=== PATIENT | female | born 1980 | race Caucasian/White ===

== ENCOUNTER 2016-10-22 10:50 | Emergency (ER) | payer OTHER ==
--- NOTE | 2016-10-22 12:52 | ED CLINICAL REPORT ---
Clinical Report - Physicians/Mid Levels [facility] [address] [place] [address] 10/22/2016 10:54 Patient: JEFF AG Time Seen: 11:57. Arrived- By private vehicle. Historian- patient. HISTORY OF PRESENT ILLNESS Chief Complaint: VAGINAL LESIONS. This started about 1 week ago and still present. The symptoms are described as severe. Modifying factors- worsened by movement and urination. Not relieved by anything. The patient has had vaginal pain and genital lesions. No abdominal pain, pelvic pain, low back pain, flank pain or abnormal bleeding. No vaginal discharge, urinary frequency or urgency of urination. The patient has had pain with urination. Not sexually active. (PT states she has a distant (years) history of exposure to genital herpes, but has never had sx herself. She states her DM is under good control. Pt states sx started after she nicked herself while shaving her pubic hair.). Similar symptoms previously: None. Recent medical care: Not recently seen/assessed. REVIEW OF SYSTEMS No nausea, vomiting, diarrhea, black stools or headache. No fever, chills, anorexia, eye discomfort or sore throat. No cough, difficulty breathing, chest pain, skin rash or enlarged lymph nodes. No joint pain. All systems otherwise negative, except as recorded above. PAST HISTORY Problems: Diabetes Mellitus. Additional Surgeries: Carpal Tunnel Surgery. Tonsillectomy. Medications: Ibuprofen Oral. Benadryl Allergy Oral. LORazepam Oral. Lexapro Oral. Lisinopril Oral. MetFORMIN HCl ER Oral. Allergies: No Known Drug Allergy. SOCIAL HISTORY Never smoker. Occasional alcohol use. History of drug use: marijuana. ADDITIONAL NOTES The nursing notes have been reviewed. PHYSICAL EXAM Vital Signs: 10/22/2016 11:26 BP: 140/80. HR: 79. RR: 18. O2 saturation: 98%. Temp: 98.7 F. Have been reviewed. Appearance: Alert. Oriented X3. No acute distress. (Pt appears somewhat uncomfortable.). HEENT: Normal external inspection. Neck: Neck supple. Respiratory: No respiratory distress. Abdomen: Soft and nontender. Back: Normal external inspection. No CVA tenderness. : Many severely tender herpes-like lesions (ulcerations, with an erythematous base) present on the perineum and right and left labia majora and minora, at the introitus and in the periurethral area (unable to examine vagina, secondary to degree of tenderness of external genitalia.). Skin: Skin warm and dry. Normal skin color. No rash. Normal skin turgor. Extremities: No lower extremity edema. Neuro: Oriented X 3. Mood/affect normal. No motor deficit. No sensory deficit. LABS, X-RAYS, AND EKG Laboratory Tests: UA-Culture if indicated: (CARLOS: 10/22/2016 11:10) ( MsgRcvd 10/22/2016 12:37) Final results Test Result Flag Units (Reference) URINE COLOR YELLOW URINE APPEARANCE SL CLOUDY URINE GLUCOSE 3+ (NEGATIVE) URINE BILIRUBIN NEGATIVE (NEGATIVE) URINE BILIRUBIN ICTOTEST NEGATIVE (NEGATIVE) URINE SPECIFIC GRAVITY 1.015 (1.010-1.030) URINE PH 6.0 (5.0-8.0) URINE PROTEIN NEGATIVE (NEGATIVE) URINE UROBILINOGEN 0.2 EU/dL (0.2-1.0) URINE NITRITE NEGATIVE (NEGATIVE) URINE BLOOD 2+ (NEGATIVE) URINE LEUK ESTERASE TRACE (NEGATIVE) URINE RBC 5-10 rbc/hpf (0-1) URINE WBC 50-75 wbc/hpf (0-1) URINE EPITHELIAL CELLS 10-15 EPI/hpf (0-5) URINE BACTERIA MODERATE (2+ TO 3+) (NONE SEEN) URINE COMMENT CULTURE INDICATED URINE CULTURES ARE SET-UP BASED ON THE FOLLOWING CRITERIA:POSITIVE NITRITEPOSITIVE LEUKOCYTE ESTERASEGREATER THAN 10 WHITE BLOOD CELLSMODERATE (2+) OR GREATER BACTERIA Culture, Herpes: (CARLOS: 10/22/2016 11:50) ( MsgRcvd 10/24/2016 14:09) Final results SPECIMEN DESCRIPTION: LABIA Test Result Flag Units (Reference) HSV CULTURE AND TYPING Positive for Herpes simplex virus type-1. Typing was confirmed by monoclonal antibody microscopic immunofluorescence. Performed at: [address], [place] [id number] Java Technical Manager: Humberto Higuera MD, Phone: [phone] Culture, Urine: (CARLOS: 10/22/2016 11:10) ( MsgRcvd 10/24/2016 12:00) Final results Test Result Flag Units (Reference) CULTURE, URINE DATE: 10/24/16 NO SIGNIFICANT ISOLATION: NO SIGNIFICANT ISOLATION PRELIM REPORT: FINAL REPORT . Pulse Oximetry: 10/22/2016 11:26 O2 saturation: 98%. (FIO2 - room air). Interpretation: normal. PROGRESS AND PROCEDURES Course of Care: Lesions did appear consistent with a herpes outbreak. No evidence of a bacterial infection present. PT was treated with acyclovir for presumed herpetic outbreak. Viral culture was performed for diagnostic certainty, and was pending upon pt's discharge. Patient counseled in person regarding the patient's stable condition, test results, diagnosis and need for follow-up. Concerns were addressed. Old medical records reviewed. Disposition: Discharged. Condition: stable. CLINICAL IMPRESSION Acute severe herpes vulvovaginitis. 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 INSTRUCTIONS Do not work for three days. Drink plenty of fluids. Warnings: SEDATIVE MEDICATION: You were given sedative medication during your visit. Do not drive or operate dangerous machinery for 6 hours. GENERAL WARNINGS: Return or contact your physician immediately if your condition worsens or changes unexpectedly, if not improving as expected, or if other problems arise. Your Current Medications: CONTINUE TAKING THE FOLLOWING MEDICATIONS: Benadryl Allergy Oral. Ibuprofen Oral. Lexapro Oral. Lisinopril Oral. LORazepam Oral. MetFORMIN HCl ER Oral. Prescription Medications: Acyclovir 200 mg: five times a day for 10 days. No refill. Diflucan 150 mg tablets: initially take 1 tablet orally , then take 1 tablet orally every day for 2 days. No refill. Substitution is permissible. Percocet 5 mg/325 mg: take 1-2 tablets orally every 6 hours as needed for pain. Dispense twenty (20). No refill. Substitution is permissible. Understanding of the discharge instructions verbalized by patient. Follow-up with: Hernán Burris MD, Obstetrics/Gynecology, , [facility], [address] [place] [address] Follow up. Call for the next available appointment. Reason for referral: Follow up ER visit. (Electronically signed by Eva Velasquez MD 10/31/2016 21:18)
--- NOTE | 2016-10-22 12:52 | ED NURSING NOTES ---
Clinical Report - Nurses Merged With [facility] [address] [place] [address] 10/22/2016 10:54 [id number] Triage time 11:Oct 22 2016. Acuity: LEVEL 3. Chief Complaint: (vaginal pain on left side). NAVDEEP COMA SCORE: [place] Coma Scale: 15- eyes open spontaneously (4); best verbal response- oriented x 4 (5); best motor response- obeys commands (6). --11:30 Anni Marks R.N. 11:26 10/22/16. BP: 140/80. HR: 79. RR: 18. O2 saturation: 98%. Temp: 98.7 F. Pain level now 04/30. --11:30 Anni Marks R.N. Weight: 102 kg stated. Height/Length: 67 inches Per Patient. BMI: 35.3. --11:28 Anni Marks R.N. Medications MetFORMIN HCl ER Oral. --11:27 Anni Marks R.N. Lisinopril Oral. --11:27 Anni Marks R.N. Lexapro Oral. --11:27 Anni Marks R.N. LORazepam Oral. --11:27 Anni Marks R.N. Benadryl Allergy Oral. --11:27 Anni Marks R.N. Ibuprofen Oral. --11:27 Anni Marks R.N. Allergies No Known Drug Allergy. --11:27 Anni Marks R.N. History Arrived by private vehicle. Historian: patient. Accompanied by friend. Onset. (one week). ( Was shaving and cut left side of labia then patient got these sores and rash.). No abdominal pain, spotting, hematuria, abnormal bleeding or flank pain. No fever. PAST MEDICAL HX: Diabetes mellitus. Immunizations: up-to-date. Last normal menstrual period- September 28. SOCIAL HX: Never smoker. Occasional alcohol use. History of drug use: marijuana. No infectious disease exposure. FALL RISK ASSESSMENT: Fall risk assessment completed. No fall risk identified. NUTRITIONAL RISK ASSESSMENT: The nutritional risk assessment revealed no deficiencies. FUNCTIONAL ASSESSMENT: Functional assessment: no impairments noted. LEARNING NEEDS ASSESSMENT: The learning needs assessment revealed no barriers. SKIN INTEGRITY ASSESSMENT: Skin integrity risk assessment completed. No skin integrity risk identified. --11:30 Anni Marks R.N. PROBLEMS: Diabetes Mellitus. --11:28 Anni Marks R.N. ADDITIONAL SURGERIES: Carpal Tunnel Surgery. Tonsillectomy. --11:28 Anni Marks R.N. Interventions ID band on patient. --11:30 Anni Marks R.N. PHYSICAL ASSESSMENT Ambulatory to room. GENERAL / NEURO / PSYCH: Alert. Oriented X 4. Appears in pain. RESPIRATORY: Respirations not labored. Breath sounds within normal limits. CVS: Normal heart rate and rhythm. Capillary refill less than 2 seconds. GI / : Abdomen soft and nontender. Bowel sounds within normal limits. --11:32 Anni Marks R.N. NURSING PROGRESS NOTES 13:14 10/22/2016 Acyclovir PO Capsules 200 mg given. Allergies verified and confirmed 5 rights. --13:14 Preston Galvan R.N. 13:14 10/22/2016 Oxycodone-APAP (Oxycodone-Acetaminophen) PO 5/325 mg Tablets 2 tab given. Allergies verified, confirmed 5 rights and sedative warning given to the patient. --13:14 Preston Galvan R.N. DISPOSITION / DISCHARGE 13:22 10/22/16. BP: 135/74. HR: 80. RR: 16. O2 saturation: 99% on room air. Temp: 97.8 F. Pain level now: 03/31. --13:22 Preston Galvan R.N. Condition at departure: improved and stable. The goals identified in the patient's plan of care were met. No learning barriers present. Discharge instructions provided and reviewed with the patient and spouse. Reviewed warnings (Pt instructed not to drive today and while taking Percocet Rx.). Reviewed medication(s) side effects, precautions, dosing and course information. Prescription(s) given to the patient. Reviewed referral to a primary care physician for followup. Work note given (Do not work for 3 days.). Patient and spouse verbalized understanding. Written instructions provided in Mont[place]. The patient was discharged by the physician. She was discharged home and accompanied by spouse. She left the Emergency Department ambulatory and via private vehicle. Spouse driving. --13:24 Preston Galvan R.N. ( Pt's VSS, ambulatory, verbalized understanding of DC paperwork and teaching regarding Rx. S/O at bedside. Pt stated she will not drive home today d/t Percocet administration.). --13:24 Preston Galvan R.N. Departure time: 13:26 Oct 22 2016. --13:27 Preston Galvan R.N. Locked/Released at 10/22/2016 15:27 by Anni Marks R.N.
--- NOTE | 2016-10-22 12:52 | ED ORDER SUMMARY ---
..... Patient: JEFF AG OrderSheet [facility] VisitID: [id number] [place] [address] 36y, F Registration Date/Time: 10/22/2016 ORDER SHEET Weight: 102.0 kg (stated) Allergies: No Known Drug Allergy GENERAL ORDERS: UA-Culture if indicated Urgent (11:58 10/22/2016 LWdewey R.N. verbal order read back to Cielo MONTEZ) (Ack 11:59 KHoerner) (12:03 KHoerner) Culture, Herpes (Miscellaneous) (labia ) Urgent (11:59 10/22/2016 LWdewey R.N. verbal order read back to Cielo MONTEZ) (Ack 12:01 KHoerner) (12:03 KHoerner) MEDICATION ORDERS: Acyclovir PO 800 mg (NOW) (12:42 10/22/2016 Cielo MONTEZ) (13:14 MCook R.N.) Oxycodone-APAP PO 10/650 mg (HIGH ALERT MEDICATION, NOW) (12:42 10/22/2016 Cielo MONTEZ) (13:14 MCchang R.N.) IV FLUIDS: ORDER SHEET NOTES: [Electronically signed by Anni Marks R.N. (15:27 10/22/2016)] [Electronically signed by Eva Velasquez MD (21:18 10/31/2016)] [Electronically locked/signed by Anni Marks R.N. (15:27 10/22/2016)]
--- NOTE | 2016-10-22 12:52 | ED CLINICAL REPORT ---
Clinical Report - Physicians/Mid Levels [facility] [address] [place] [address] 10/22/2016 10:54 Patient: JEFF AG Time Seen: 11:57. Arrived- By private vehicle. Historian- patient. HISTORY OF PRESENT ILLNESS Chief Complaint: VAGINAL LESIONS. This started about 1 week ago and still present. The symptoms are described as severe. Modifying factors- worsened by movement and urination. Not relieved by anything. The patient has had vaginal pain and genital lesions. No abdominal pain, pelvic pain, low back pain, flank pain or abnormal bleeding. No vaginal discharge, urinary frequency or urgency of urination. The patient has had pain with urination. Not sexually active. (PT states she has a distant (years) history of exposure to genital herpes, but has never had sx herself. She states her DM is under good control. Pt states sx started after she nicked herself while shaving her pubic hair.). Similar symptoms previously: None. Recent medical care: Not recently seen/assessed. REVIEW OF SYSTEMS No nausea, vomiting, diarrhea, black stools or headache. No fever, chills, anorexia, eye discomfort or sore throat. No cough, difficulty breathing, chest pain, skin rash or enlarged lymph nodes. No joint pain. All systems otherwise negative, except as recorded above. PAST HISTORY Problems: Diabetes Mellitus. Additional Surgeries: Carpal Tunnel Surgery. Tonsillectomy. Medications: Ibuprofen Oral. Benadryl Allergy Oral. LORazepam Oral. Lexapro Oral. Lisinopril Oral. MetFORMIN HCl ER Oral. Allergies: No Known Drug Allergy. SOCIAL HISTORY Never smoker. Occasional alcohol use. History of drug use: marijuana. ADDITIONAL NOTES The nursing notes have been reviewed. PHYSICAL EXAM Vital Signs: 10/22/2016 11:26 BP: 140/80. HR: 79. RR: 18. O2 saturation: 98%. Temp: 98.7 F. Have been reviewed. Appearance: Alert. Oriented X3. No acute distress. (Pt appears somewhat uncomfortable.). HEENT: Normal external inspection. Neck: Neck supple. Respiratory: No respiratory distress. Abdomen: Soft and nontender. Back: Normal external inspection. No CVA tenderness. : Many severely tender herpes-like lesions (ulcerations, with an erythematous base) present on the perineum and right and left labia majora and minora, at the introitus and in the periurethral area (unable to examine vagina, secondary to degree of tenderness of external genitalia.). Skin: Skin warm and dry. Normal skin color. No rash. Normal skin turgor. Extremities: No lower extremity edema. Neuro: Oriented X 3. Mood/affect normal. No motor deficit. No sensory deficit. LABS, X-RAYS, AND EKG Laboratory Tests: UA-Culture if indicated: (CARLOS: 10/22/2016 11:10) ( MsgRcvd 10/22/2016 12:37) Final results Test Result Flag Units (Reference) URINE COLOR YELLOW URINE APPEARANCE SL CLOUDY URINE GLUCOSE 3+ (NEGATIVE) URINE BILIRUBIN NEGATIVE (NEGATIVE) URINE BILIRUBIN ICTOTEST NEGATIVE (NEGATIVE) URINE SPECIFIC GRAVITY 1.015 (1.010-1.030) URINE PH 6.0 (5.0-8.0) URINE PROTEIN NEGATIVE (NEGATIVE) URINE UROBILINOGEN 0.2 EU/dL (0.2-1.0) URINE NITRITE NEGATIVE (NEGATIVE) URINE BLOOD 2+ (NEGATIVE) URINE LEUK ESTERASE TRACE (NEGATIVE) URINE RBC 5-10 rbc/hpf (0-1) URINE WBC 50-75 wbc/hpf (0-1) URINE EPITHELIAL CELLS 10-15 EPI/hpf (0-5) URINE BACTERIA MODERATE (2+ TO 3+) (NONE SEEN) URINE COMMENT CULTURE INDICATED URINE CULTURES ARE SET-UP BASED ON THE FOLLOWING CRITERIA:POSITIVE NITRITEPOSITIVE LEUKOCYTE ESTERASEGREATER THAN 10 WHITE BLOOD CELLSMODERATE (2+) OR GREATER BACTERIA Culture, Herpes: (CARLOS: 10/22/2016 11:50) ( MsgRcvd 10/24/2016 14:09) Final results SPECIMEN DESCRIPTION: LABIA Test Result Flag Units (Reference) HSV CULTURE AND TYPING Positive for Herpes simplex virus type-1. Typing was confirmed by monoclonal antibody microscopic immunofluorescence. Performed at: [address], [place] [id number] Dinkey Skinner: Humberto Higuera MD, Phone: [phone] Culture, Urine: (CARLOS: 10/22/2016 11:10) ( MsgRcvd 10/24/2016 12:00) Final results Test Result Flag Units (Reference) CULTURE, URINE DATE: 10/24/16 NO SIGNIFICANT ISOLATION: NO SIGNIFICANT ISOLATION PRELIM REPORT: FINAL REPORT . Pulse Oximetry: 10/22/2016 11:26 O2 saturation: 98%. (FIO2 - room air). Interpretation: normal. PROGRESS AND PROCEDURES Course of Care: Lesions did appear consistent with a herpes outbreak. No evidence of a bacterial infection present. PT was treated with acyclovir for presumed herpetic outbreak. Viral culture was performed for diagnostic certainty, and was pending upon pt's discharge. Patient counseled in person regarding the patient's stable condition, test results, diagnosis and need for follow-up. Concerns were addressed. Old medical records reviewed. Disposition: Discharged. Condition: stable. CLINICAL IMPRESSION Acute severe herpes vulvovaginitis. 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 INSTRUCTIONS Do not work for three days. Drink plenty of fluids. Warnings: SEDATIVE MEDICATION: You were given sedative medication during your visit. Do not drive or operate dangerous machinery for 6 hours. GENERAL WARNINGS: Return or contact your physician immediately if your condition worsens or changes unexpectedly, if not improving as expected, or if other problems arise. Your Current Medications: CONTINUE TAKING THE FOLLOWING MEDICATIONS: Benadryl Allergy Oral. Ibuprofen Oral. Lexapro Oral. Lisinopril Oral. LORazepam Oral. MetFORMIN HCl ER Oral. Prescription Medications: Acyclovir 200 mg: five times a day for 10 days. No refill. Diflucan 150 mg tablets: initially take 1 tablet orally , then take 1 tablet orally every day for 2 days. No refill. Substitution is permissible. Percocet 5 mg/325 mg: take 1-2 tablets orally every 6 hours as needed for pain. Dispense twenty (20). No refill. Substitution is permissible. Understanding of the discharge instructions verbalized by patient. Follow-up with: Hernán Burris MD, Obstetrics/Gynecology, , [facility], [address] [place] [address] Follow up. Call for the next available appointment. Reason for referral: Follow up ER visit. (Electronically signed by Eva Velasquez MD 10/31/2016 21:18)
--- NOTE | 2016-10-22 12:52 | ED ORDER SUMMARY ---
..... Patient: JEFF AG OrderSheet VisitID: [id number] [place] [address] 36y, F Registration Date/Time: 10/22/2016 ORDER SHEET Weight: 102.0 kg (stated) Allergies: No Known Drug Allergy GENERAL ORDERS: UA-Culture if indicated Urgent (11:58 10/22/2016 LWdewey R.N. verbal order read back to Cielo MONTEZ) (Ack 11:59 KHoerner) (12:03 KHoerner) Culture, Herpes (Miscellaneous) (labia ) Urgent (11:59 10/22/2016 LWdewey R.N. verbal order read back to Cielo MONTEZ) (Ack 12:01 KHoerner) (12:03 KHoerner) MEDICATION ORDERS: Acyclovir PO 800 mg (NOW) (12:42 10/22/2016 Cielo MONTEZ) (13:14 MCook R.N.) Oxycodone-APAP PO 10/650 mg (HIGH ALERT MEDICATION, NOW) (12:42 10/22/2016 Cielo MONTEZ) (13:14 MCchang R.N.) IV FLUIDS: ORDER SHEET NOTES: [Electronically signed by Anni Marks R.N. (15:27 10/22/2016)] [Electronically signed by Eva Velasquez MD (21:18 10/31/2016)] [Electronically locked/signed by Anni Marks R.N. (15:27 10/22/2016)]
--- NOTE | 2016-10-22 12:52 | ED NURSING NOTES ---
Clinical Report - Nurses [facility] [address] [place] [address] 10/22/2016 10:54 [id number] Triage time 11:Oct 22 2016. Acuity: LEVEL 3. Chief Complaint: (vaginal pain on left side). NAVDEEP COMA SCORE: [place] Coma Scale: 15- eyes open spontaneously (4); best verbal response- oriented x 4 (5); best motor response- obeys commands (6). --11:30 Anni Marks R.N. 11:26 10/22/16. BP: 140/80. HR: 79. RR: 18. O2 saturation: 98%. Temp: 98.7 F. Pain level now 04/30. --11:30 Anni Marks R.N. Weight: 102 kg stated. Height/Length: 67 inches Per Patient. BMI: 35.3. --11:28 Anni Marks R.N. Medications MetFORMIN HCl ER Oral. --11:27 Anni Marks R.N. Lisinopril Oral. --11:27 Anni Marks R.N. Lexapro Oral. --11:27 Anni Marks R.N. LORazepam Oral. --11:27 Anni Marks R.N. Benadryl Allergy Oral. --11:27 Anni Marks R.N. Ibuprofen Oral. --11:27 Anni Marks R.N. Allergies No Known Drug Allergy. --11:27 Anni Marks R.N. History Arrived by private vehicle. Historian: patient. Accompanied by friend. Onset. (one week). ( Was shaving and cut left side of labia then patient got these sores and rash.). No abdominal pain, spotting, hematuria, abnormal bleeding or flank pain. No fever. PAST MEDICAL HX: Diabetes mellitus. Immunizations: up-to-date. Last normal menstrual period- September 28. SOCIAL HX: Never smoker. Occasional alcohol use. History of drug use: marijuana. No infectious disease exposure. FALL RISK ASSESSMENT: Fall risk assessment completed. No fall risk identified. NUTRITIONAL RISK ASSESSMENT: The nutritional risk assessment revealed no deficiencies. FUNCTIONAL ASSESSMENT: Functional assessment: no impairments noted. LEARNING NEEDS ASSESSMENT: The learning needs assessment revealed no barriers. SKIN INTEGRITY ASSESSMENT: Skin integrity risk assessment completed. No skin integrity risk identified. --11:30 Anni Marks R.N. PROBLEMS: Diabetes Mellitus. --11:28 Anni Marks R.N. ADDITIONAL SURGERIES: Carpal Tunnel Surgery. Tonsillectomy. --11:28 Anni Marks R.N. Interventions ID band on patient. --11:30 Anni Marks R.N. PHYSICAL ASSESSMENT Ambulatory to room. GENERAL / NEURO / PSYCH: Alert. Oriented X 4. Appears in pain. RESPIRATORY: Respirations not labored. Breath sounds within normal limits. CVS: Normal heart rate and rhythm. Capillary refill less than 2 seconds. GI / : Abdomen soft and nontender. Bowel sounds within normal limits. --11:32 Anni Marks R.N. NURSING PROGRESS NOTES 13:14 10/22/2016 Acyclovir PO Capsules 200 mg given. Allergies verified and confirmed 5 rights. --13:14 Preston Galvan R.N. 13:14 10/22/2016 Oxycodone-APAP (Oxycodone-Acetaminophen) PO 5/325 mg Tablets 2 tab given. Allergies verified, confirmed 5 rights and sedative warning given to the patient. --13:14 Preston Galvan R.N. DISPOSITION / DISCHARGE 13:22 10/22/16. BP: 135/74. HR: 80. RR: 16. O2 saturation: 99% on room air. Temp: 97.8 F. Pain level now: 03/31. --13:22 Preston Galvan R.N. Condition at departure: improved and stable. The goals identified in the patient's plan of care were met. No learning barriers present. Discharge instructions provided and reviewed with the patient and spouse. Reviewed warnings (Pt instructed not to drive today and while taking Percocet Rx.). Reviewed medication(s) side effects, precautions, dosing and course information. Prescription(s) given to the patient. Reviewed referral to a primary care physician for followup. Work note given (Do not work for 3 days.). Patient and spouse verbalized understanding. Written instructions provided in [place]. The patient was discharged by the physician. She was discharged home and accompanied by spouse. She left the Emergency Department ambulatory and via private vehicle. Spouse driving. --13:24 Preston Galvan R.N. ( Pt's VSS, ambulatory, verbalized understanding of DC paperwork and teaching regarding Rx. S/O at bedside. Pt stated she will not drive home today d/t Percocet administration.). --13:24 Preston Galvan R.N. Departure time: 13:26 Oct 22 2016. --13:27 Preston Galvan R.N. Locked/Released at 10/22/2016 15:27 by Anni Marks R.N.
--- NOTE | 2016-10-31 21:18 | ED MED RECONCILIATION SUMMARY ---
Patient: JEFF AG Medication Reconciliation Report [facility] VisitID: [id number] [address] [place] [address] 36y, F Registration Date/Time: 10/22/2016 Weight: 102.0 kg Height/Length: 67 in. BMI: 35.3 ALLERGIES: No Known Drug Allergy The patient's Home Medications are listed below: CONTINUE TAKING THE FOLLOWING MEDICATIONS: Benadryl Allergy Oral Ibuprofen Oral Lexapro Oral Lisinopril Oral LORazepam Oral MetFORMIN HCl ER Oral The source(s) of the original Home Medication information: Not obtained. The following Medications were given to the patient in the Emergency Department: Acyclovir [PO] PO 200 mg, administered: 10/22/2016 1:14:00 PM Oxycodone-APAP [PO] PO 2 tab, administered: 10/22/2016 1:14:00 PM The following Medications were prescribed to the patient: Acyclovir 200 mg: five times a day for 10 days. No refill. -- Eva Velasquez MD Diflucan 150 mg tablets: initially take 1 tablet orally , then take 1 tablet orally every day for 2 days. No refill. Substitution is permissible. -- Eva Velasquez MD Percocet 5 mg/325 mg: take 1-2 tablets orally every 6 hours as needed for pain. Dispense twenty (20). No refill. Substitution is permissible. -- Eva Velasquez MD
--- NOTE | 2016-10-31 21:18 | ED DISCHARGE INSTRUCTIONS ---
Patient: JEFF AG General Instructions [facility] VisitID: [id number] [place] [address] 36y, F Registration Date/Time: 10/22/2016 Acute severe herpes vulvovaginitis. 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 INSTRUCTIONS Do not work for three days. Drink plenty of fluids. Warnings: SEDATIVE MEDICATION: You were given sedative medication during your visit. Do not drive or operate dangerous machinery for 6 hours. GENERAL WARNINGS: Return or contact your physician immediately if your condition worsens or changes unexpectedly, if not improving as expected, or if other problems arise. Your Current Medications: CONTINUE TAKING THE FOLLOWING MEDICATIONS: Benadryl Allergy Oral. Ibuprofen Oral. Lexapro Oral. Lisinopril Oral. LORazepam Oral. MetFORMIN HCl ER Oral. Prescription Medications: Acyclovir 200 mg: five times a day for 10 days. No refill. Diflucan 150 mg tablets: initially take 1 tablet orally , then take 1 tablet orally every day for 2 days. No refill. Substitution is permissible. Percocet 5 mg/325 mg: take 1-2 tablets orally every 6 hours as needed for pain. Dispense twenty (20). No refill. Substitution is permissible. Understanding of the discharge instructions verbalized by patient. Follow-up with: Hernán Burris MD, Obstetrics/Gynecology, , [facility], [address] [place] [address] Follow up. Call for the next available appointment. Reason for referral: Follow up ER visit. ADDITIONAL INFORMATION Genital Herpes Genital herpes is a common sexually transmitted disease (STD). It is caused by the Herpes Simplex virus. One out of five (20%) teens and adults carry the herpes virus. During an outbreak, it causes small blisters that break open, leaving small painful ulcers (sores) in the genital area. Eventually, scabs form and the ulcers heal. In women, these are most often on the skin just outside the vaginal opening. They can occur on the buttocks, anus or cervix. In men, the sores are usually on the tip, sides or base of the penis. They also occur on the scrotum, buttocks or thighs. The first episode begins within 2-3 weeks after exposure to an infected sexual partner. It may last 1-3 weeks and cause headache, muscle ache and fevers. The first outbreak is usually the worst. Because the virus remains in the body even after the sores heal, most persons will have recurrences. The frequency of recurrent outbreaks varies with each person. Some people will never have another outbreak. Others will have several episodes a year. Later outbreaks are usually shorter, milder and less painful. For many, the number of outbreaks tends to decrease over time. Various factors may trigger a recurrence. These include: Emotional stress Menstruation Presence of another illness (cold, flu, or fever from any cause) Overexertion and fatigue Weakened immune system Home Care: It is very important that you do not have sexual relations until ALL the herpes sores have healed completely. Wash the affected area gently with mild soap and water. Wash your hands after touching the affected area. You may use acetaminophen (Tylenol) or ibuprofen (Motrin, Advil) to control pain, unless another pain medicine was prescribed. [NOTE: If you have chronic liver or kidney disease or ever had a stomach ulcer or GI bleeding, talk with your doctor before using these medicines.] Your doctor may prescribe anti-viral medicine during the first outbreak. This will help the sores heal faster. Antiviral medicine may also be prescribed to have at home to take at the first sign of a recurrence. This will shorten the symptoms of a recurrence. For persons with frequent outbreaks, daily therapy may be prescribed. This will reduce the frequency of attacks. Daily therapy may also reduce risk of spread of herpes to your sexual partner. Discuss the risks and benefits of daily therapy with your doctor. If you are a woman who is now or become in the future, let your doctor know that you have had herpes since this may affect the method of delivery. Preventing Spread To Others: The virus is spread by sexual contact with someone who has the herpes virus. The risk of spread is highest when the sores are present. However, there is a chance of spreading the virus even when sores are not visible . Inform future sexual partners that you have herpes and that he/she may become infected. To reduce the risk of passing the virus to a partner who has never had herpes, avoid sexual relations at the first sign of an outbreak and until the ulcers are fully healed. Latex condoms reduce the risk of spread between outbreaks if the infected site is covered, but they do not guarantee protection. Follow-Up: Persons who have just learned that they have herpes may feel guilt, anger, and be emotionally upset. Getting the facts helps put you back in control. Follow up with your doctor or the Public Health Dept for complete STD screening, including HIV testing. For more information about Herpes, see the "National Herpes Resource Center" http://www.ashastd.org/herpes/herpes_overview.cfm ; or call the National STD Hotline: 805.692.7748. Get Prompt Medical Attention if any of the following occur: Inability to urinate due to pain Swelling or increasing redness in the genital area Unusual drowsiness, weakness or confusion Headache, stiff neck Discharge from the vagina or penis Increasing back or abdominal pain Rash or joint pain You have been given the following additional information: Herpes Genitalis, Hsv: Type Ii Do not work for three days. (Electronically signed by Eva Velasquez MD 10/31/2016 21:18)
--- NOTE | 2016-10-31 21:18 | ED DISCHARGE INSTRUCTIONS ---
Patient: JEFF AG General Instructions [facility] VisitID: [id number] [place] [address] 36y, F Registration Date/Time: 10/22/2016 Acute severe herpes vulvovaginitis. 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 INSTRUCTIONS Do not work for three days. Drink plenty of fluids. Warnings: SEDATIVE MEDICATION: You were given sedative medication during your visit. Do not drive or operate dangerous machinery for 6 hours. GENERAL WARNINGS: Return or contact your physician immediately if your condition worsens or changes unexpectedly, if not improving as expected, or if other problems arise. Your Current Medications: CONTINUE TAKING THE FOLLOWING MEDICATIONS: Benadryl Allergy Oral. Ibuprofen Oral. Lexapro Oral. Lisinopril Oral. LORazepam Oral. MetFORMIN HCl ER Oral. Prescription Medications: Acyclovir 200 mg: five times a day for 10 days. No refill. Diflucan 150 mg tablets: initially take 1 tablet orally , then take 1 tablet orally every day for 2 days. No refill. Substitution is permissible. Percocet 5 mg/325 mg: take 1-2 tablets orally every 6 hours as needed for pain. Dispense twenty (20). No refill. Substitution is permissible. Understanding of the discharge instructions verbalized by patient. Follow-up with: Hernán Burris MD, Obstetrics/Gynecology, , [facility], [address] [place] [address] Follow up. Call for the next available appointment. Reason for referral: Follow up ER visit. ADDITIONAL INFORMATION Genital Herpes Genital herpes is a common sexually transmitted disease (STD). It is caused by the Herpes Simplex virus. One out of five (20%) teens and adults carry the herpes virus. During an outbreak, it causes small blisters that break open, leaving small painful ulcers (sores) in the genital area. Eventually, scabs form and the ulcers heal. In women, these are most often on the skin just outside the vaginal opening. They can occur on the buttocks, anus or cervix. In men, the sores are usually on the tip, sides or base of the penis. They also occur on the scrotum, buttocks or thighs. The first episode begins within 2-3 weeks after exposure to an infected sexual partner. It may last 1-3 weeks and cause headache, muscle ache and fevers. The first outbreak is usually the worst. Because the virus remains in the body even after the sores heal, most persons will have recurrences. The frequency of recurrent outbreaks varies with each person. Some people will never have another outbreak. Others will have several episodes a year. Later outbreaks are usually shorter, milder and less painful. For many, the number of outbreaks tends to decrease over time. Various factors may trigger a recurrence. These include: Emotional stress Menstruation Presence of another illness (cold, flu, or fever from any cause) Overexertion and fatigue Weakened immune system Home Care: It is very important that you do not have sexual relations until ALL the herpes sores have healed completely. Wash the affected area gently with mild soap and water. Wash your hands after touching the affected area. You may use acetaminophen (Tylenol) or ibuprofen (Motrin, Advil) to control pain, unless another pain medicine was prescribed. [NOTE: If you have chronic liver or kidney disease or ever had a stomach ulcer or GI bleeding, talk with your doctor before using these medicines.] Your doctor may prescribe anti-viral medicine during the first outbreak. This will help the sores heal faster. Antiviral medicine may also be prescribed to have at home to take at the first sign of a recurrence. This will shorten the symptoms of a recurrence. For persons with frequent outbreaks, daily therapy may be prescribed. This will reduce the frequency of attacks. Daily therapy may also reduce risk of spread of herpes to your sexual partner. Discuss the risks and benefits of daily therapy with your doctor. If you are a woman who is now or become in the future, let your doctor know that you have had herpes since this may affect the method of delivery. Preventing Spread To Others: The virus is spread by sexual contact with someone who has the herpes virus. The risk of spread is highest when the sores are present. However, there is a chance of spreading the virus even when sores are not visible . Inform future sexual partners that you have herpes and that he/she may become infected. To reduce the risk of passing the virus to a partner who has never had herpes, avoid sexual relations at the first sign of an outbreak and until the ulcers are fully healed. Latex condoms reduce the risk of spread between outbreaks if the infected site is covered, but they do not guarantee protection. Follow-Up: Persons who have just learned that they have herpes may feel guilt, anger, and be emotionally upset. Getting the facts helps put you back in control. Follow up with your doctor or the Public Health Dept for complete STD screening, including HIV testing. For more information about Herpes, see the "National Herpes Resource Center" http://www.ashastd.org/herpes/herpes_overview.cfm ; or call the National STD Hotline: 780.705.7478. Get Prompt Medical Attention if any of the following occur: Inability to urinate due to pain Swelling or increasing redness in the genital area Unusual drowsiness, weakness or confusion Headache, stiff neck Discharge from the vagina or penis Increasing back or abdominal pain Rash or joint pain You have been given the following additional information: Herpes Genitalis, Hsv: Type Ii Do not work for three days. (Electronically signed by Eva Velasquez MD 10/31/2016 21:18)
--- NOTE | 2016-10-31 21:18 | ED MAR SUMMARY ---
..... Medication Administration Record [facility] [address] [place] [address] Patient: JEFF AG Visit ID: [id number] 36y, F Weight: 102.0 kg Height/Length: 67 in BMI: 35.3 ALLERGIES: No Known Drug Allergy Given :10/22/2016 Preston Galvan R.N. Medication Administered: ACYCLOVIR [PO], Dose: 200 mg Capsules PO. Medication Ordered: Acyclovir PO 800 mg (NOW). Given 13:10/22/2016 Presotn Galvan R.N. Medication Administered: OXYCODONE-APAP [PO] (OXYCODONE-ACETAMINOPHEN), Dose: 2 tab 5/325 mg Tablets PO. Medication Ordered: Oxycodone-APAP PO 10/650 mg (HIGH ALERT MEDICATION, NOW).
--- NOTE | 2016-10-31 21:18 | ED MED RECONCILIATION SUMMARY ---
Patient: JEFF AG Medication Reconciliation Report [facility] VisitID: [id number] [address] [place] [address] 36y, F Registration Date/Time: 10/22/2016 Weight: 102.0 kg Height/Length: 67 in. BMI: 35.3 ALLERGIES: No Known Drug Allergy The patient's Home Medications are listed below: CONTINUE TAKING THE FOLLOWING MEDICATIONS: Benadryl Allergy Oral Ibuprofen Oral Lexapro Oral Lisinopril Oral LORazepam Oral MetFORMIN HCl ER Oral The source(s) of the original Home Medication information: Not obtained. The following Medications were given to the patient in the Emergency Department: Acyclovir [PO] PO 200 mg, administered: 10/22/2016 1:14:00 PM Oxycodone-APAP [PO] PO 2 tab, administered: 10/22/2016 1:14:00 PM The following Medications were prescribed to the patient: Acyclovir 200 mg: five times a day for 10 days. No refill. -- Eva Velasquez MD Diflucan 150 mg tablets: initially take 1 tablet orally , then take 1 tablet orally every day for 2 days. No refill. Substitution is permissible. -- Eva Velasquez MD Percocet 5 mg/325 mg: take 1-2 tablets orally every 6 hours as needed for pain. Dispense twenty (20). No refill. Substitution is permissible. -- Eva Velasquez MD
--- NOTE | 2016-10-31 21:18 | ED MAR SUMMARY ---
..... Medication Administration Record [facility] [address] [place] [address] Patient: JEFF AG Visit ID: [id number] 36y, F Weight: 102.0 kg Height/Length: 67 in BMI: 35.3 ALLERGIES: No Known Drug Allergy Given :10/22/2016 Preston Galvan R.N. Medication Administered: ACYCLOVIR [PO], Dose: 200 mg Capsules PO. Medication Ordered: Acyclovir PO 800 mg (NOW). Given 13:10/22/2016 Preston Galvan R.N. Medication Administered: OXYCODONE-APAP [PO] (OXYCODONE-ACETAMINOPHEN), Dose: 2 tab 5/325 mg Tablets PO. Medication Ordered: Oxycodone-APAP PO 10/650 mg (HIGH ALERT MEDICATION, NOW).
== END 2016-10-22 13:20 | disposition home or self-care (01) ==
LOC: ED SRH 10:50
DX: A60.04 Herpesviral vulvovaginitis (principal); E11.9 Type 2 diabetes mellitus without complications; Z79.899 Other long term (current) drug therapy; Z79.84 Long term (current) use of oral hypoglycemic drugs
CPT/HCPCS: 90004; 90469; 99105